=== PATIENT | female | born 1980 | race Caucasian/White ===

== ENCOUNTER 2024-01-11 01:46 | Inpatient (IN) ==
--- NOTE | 2024-01-11 02:11 | Emergency Department Note ---
History of Present Illness General Chief complaint: Flank Pain Stated complaint: "PAIN ALL OVER", RIB PAIN, BREATHING DIFFICULTY Time Seen by Provider: 01/11/24 01:55 Source: patient, RN notes reviewed and old records reviewed (Attempted but no old records available in the EMR) Mode of arrival: ambulatory Limitations: no limitations History of Present Illness Maximum Pain Intensity: 9 This patient is a 43-year-old female who comes in after having pain in her bilateral flanks and feeling just generally achy and flulike. She said Tuesday she left took coffee in the car for couple hours and had milk in it she drank it and on the way home had sharp pain in her stomach and felt uncomfortable. She currently she had heartburn. She later on the day she vomited and felt better she is continue have pain in her back bilaterally her urine was cloudy but she had no dysuria or hematuria. no fever. she has slight chest pain with breathing in the posterior chest bilaterally is on both sides. no fall or trauma. no cough she did take a COVID test that was negative. Denies . She is not breast-feeding. Home Medications Medication Instructions Recorded Confirmed Type epinephrine 0.3 mg/0.3 mL 0.3 mg IM DIRECTED PRN 01/11/24 01/11/24 History injection, auto-injector IDIOPATHIC ANGIOEDEMA prednisone 20 mg tablet 40 mg PO DAILY PRN IDIOPATHIC 01/11/24 01/11/24 History ANGIOEDEMA Allergies Allergy/AdvReac Type Severity Reaction Status Date / Time No Known Allergies Allergy Verified 01/11/24 02:12 Past Med/Surg History Problem List (Updated 01/11/24 @ 05:29 by Russell Paz MD) Common bile duct dilatation (Acute) Elevated liver function tests (Acute) Choledocholithiasis (Acute) UTI (urinary tract infection) (Acute) Bradycardia, sinus (Acute) Flank Pain (Acute) Left rib fracture (Acute) Pain of right thumb (Acute) Pneumothorax, left (Acute) Previous section (Chronic 04/12/11) Social History Smoking Status: Never smoker Preferred Language: Kosovan Feels Safe at Home: Yes Immunizations: Past medical historyshe did have a pneumothorax in the setting of trauma. No history of spontaneous pneumo. No history of blood clots Medications currently she takes no regular medication Review of Systems A total of 10 systems reviewed and were otherwise negative Physical Exam Vital Signs Vital Signs - 24 hr 01/11/24 01:50 01/11/24 02:35 01/11/24 02:41 Temperature 36.9 C Temperature Source Oral Pulse Rate 71 55 L Pulse Rate [Apical] Respiratory Rate 20 Respiratory Effort / Characteristics Non-Labored Spontaneous Respiratory Depth Normal Blood Pressure 116/83 Blood Pressure [Left Arm] Blood Pressure Mean 94 Blood Pressure Mean [Left Arm] Pulse Oximetry 98 Oxygen Delivery Method Room Air Room Air Sepsis Recent Fever Within 48 Hours No Sepsis New/Unexplained Change in Mental Status No Sepsis Action Taken by Nursing No Action Required 01/11/24 03:11 01/11/24 05:17 01/11/24 06:32 Temperature Temperature Source Pulse Rate 69 Pulse Rate [Apical] 52 L 74 Respiratory Rate 12 17 Respiratory Effort / Characteristics Respiratory Depth Blood Pressure Blood Pressure [Left Arm] 115/65 107/77 Blood Pressure Mean Blood Pressure Mean [Left Arm] 81 87 Pulse Oximetry 99 99 Oxygen Delivery Method Room Air Room Air Sepsis Recent Fever Within 48 Hours Sepsis New/Unexplained Change in Mental Status Sepsis Action Taken by Nursing General: Well developed well nourished middle-age female who appears in no acute distress, breathing comfortably on room air. Normal speech HEENT: Normal cephalic atraumatic. Pupils are equal round and reactive to light. Extraocular movements are intact. Oropharynx is pink with moist mucous membranes. No swelling of the mouth lips or tongue. Neck: Supple with a midline trachea. No meningeal signs or stiffness, no JVD or bruits. No Stridor. Chest: Clear to auscultation bilaterally. No wheezes or rhonchi. No increased work of breathing. No crepitus or subcutaneous air Heart: Regular rate and rhythm without murmurs or gallops. Abdomen: Soft nontender, nondistended without rebound guarding or rigidity. Extremities: No cyanosis clubbing or edema. No calf tenderness or assymetry Spine/Back. Non tender to palpation. No CVA tenderness. She has no significant tenderness on palpation no rash Skin: Good turgor without rashes. Neurologic exam: Cranial nerves two through 12 are intact. Motor and sensation are intact and symmetrical throughout. Course Administered Medications Sodium Chloride (Nss) 1,000 mls @ 125 mls/hr IV .Q8H GREG Stop: 08/16/24 05:29 Last Admin: 01/11/24 05:50 Dose: 125 mls/hr Documented By: NTAHALY Discontinued Medications Sodium Chloride (Nss) 1,000 mls @ 999 mls/hr IV .Q1H1M STA Stop: 01/11/24 03:05 Last Admin: 01/11/24 02:34 Dose: 999 mls/hr Documented By: MAYRA Piperacillin Sod/Tazobactam Sod (Zosyn) 4.5 gm in 100 mls @ 200 mls/hr IV NOW ONE Stop: 01/11/24 05:20 Last Infusion: 01/11/24 05:53 Dose: Infused Documented By: axle polisher: 01/11/24 05:12 Dose: 200 mls/hr Documented By: NATHALY Ioversol (Optiray 320 125ml) 125 ml IV ONCE ONE Stop: 01/11/24 04:29 Last Admin: 01/11/24 04:28 Dose: 117 ml Documented By: HODAN Ketorolac Tromethamine (Ketorolac Tromethamine 15 Mg/Ml Vial) 10 mg IV NOW ONE Stop: 01/11/24 02:58 Last Admin: 01/11/24 03:09 Dose: 10 mg Documented By: NATHALY Medical Decision Making Differential Diagnosis Viral illness, influenza, UTI, kidney stone, PE, pneumothorax, cardiac disease, infection, Medical Records Attestation: I reviewed the patient's medical records. Home Medications Current Medication List: was personally reviewed by me Laboratory Data Attestation: I reviewed the patient's lab results. 01/11/24 02:10 01/11/24 02:10 Lab Results 01/11/24 01/11/24 Range/Units 02:01 02:10 WBC 6.08 (4.8-10.8) K/ul RBC 4.21 (4.20-5.40) M/uL Hgb 12.6 (12.0-16.0) g/dl Hct 37.8 (37.0-47.0) % MCV 89.8 (80.0-100.0) fL MCH 29.9 (25.0-34.0) pg MCHC 33.3 (32.0-36.0) g/dL RDW Std Deviation 42.7 (36.4-46.3) fL RDW Coeff of Blanca 13.1 (11.5-14.5) % Plt Count 295 (130-400) K/uL MPV 9.7 (9.4-12.4) fL Immature Gran % (Auto) 0.3 % Neut % (Auto) 69.1 % Lymph % (Auto) 18.8 % White % (Auto) 7.2 % Eos % (Auto) 3.6 % Baso % (Auto) 1.0 % Neut # (Auto) 4.20 (1.40-6.50) K/uL Lymph # (Auto) 1.14 L (1.20-3.40) K/uL White # (Auto) 0.44 (0.11-0.59) K/uL Eos # (Auto) 0.22 (0.00-0.50) K/uL Baso # (Auto) 0.06 (0.00-0.20) K/uL Immature Gran # (Auto) 0.02 (0.01-0.20) K/uL D-Dimer 860 H* (0-500) ug/L FEU Sodium 137 (136-145) mmol/L Potassium 3.6 (3.5-5.1) mmol/L Chloride 105 (98-107) mmol/L Carbon Dioxide 27 (21-32) mmol/L Anion Gap 5 (3-11) BUN 11 (6-23) mg/dl Creatinine 0.85 (0.6-1.2) mg/dl Est Cr Clr Drug Dosing 79.0 ml/min Est GFR ( Amer) 96.6 ml/min Est GFR (Non-Af Amer) 83.3 ml/min BUN/Creatinine Ratio 12.9 (10-20) Glucose 110 H (70-99(Fasting)) mg/dl Calcium 8.8 (8.6-10.3) mg/dl Total Bilirubin 6.0 H (0.2-1.0) mg/dl AST 467 H (13-39) U/L ALT 1067 H (7-52) U/L Alkaline Phosphatase 215 H (34-104) U/L Troponin I High Sens 2.4 (0-14) pg/ml Total Protein 6.4 (6.0-8.3) gm/dl Albumin 4.1 (3.4-5.0) gm/dl Globulin 2.3 L (2.5-4.0) gm/dl Albumin/Globulin Ratio 1.8 (0.9-2) Lipase 27 (11-82) U/L HCG, Qual Negative (Negative) Urine Color Dark Yellow Urine Appearance Clear (Clear) Urine pH 7.0 (4.5-7.5) Ur Specific Ennice 1.021 (1.000-1.030) Urine Protein Negative (Negative) Urine Glucose (UA) Negative (Negative) Urine Ketones Trace H (Negative) Urine Blood Negative (Negative) Urine Nitrite Negative (Negative) Urine Bilirubin 2+ H (Negative) Urine Urobilinogen Negative (Negative) Ur Leukocyte Esterase Trace H (Negative) Urine WBC (Auto) 0-5 (0-5) /hpf Urine RBC (Auto) 3-5 H (0-2) /hpf U Hyaline Cast (Auto) 0-2 (0-2) /lpf U Epithel Cells (Auto) 6-10 H (0-2) /hpf Urine Bacteria (Auto) 1+ H (None Seen) Adenovirus (PCR) Not Detected (NotDetected) B. pertussis DNA (PCR) Not Detected (NotDetected) B.parapertussis DNA PCR Not Detected (NotDetected) C. pneumoniae DNA (PCR) Not Detected (NotDetected) Coronavirus OC43 (PCR) Not Detected (NotDetected) Coronavirus HKU1 (PCR) Not Detected (NotDetected) Coronavirus 229E (PCR) Not Detected (NotDetected) SARS-CoV-2 (PCR) Not Detected (NotDetected) Coronavirus NL63 (PCR) Not Detected (NotDetected) Monoscreen Negative (Negative) Human Metapneumovir PCR Not Detected (NotDetected) Influenza Type A (PCR) Not Detected (NotDetected) Influenza Type B (PCR) Not Detected (NotDetected) M. pneumoniae (PCR) Not Detected (NotDetected) Parainfluenza 1 (PCR) Not Detected (NotDetected) Parainfluenza 2 (PCR) Not Detected (NotDetected) Parainfluenza 3 (PCR) Not Detected (NotDetected) Parainfluenza 4 (PCR) Not Detected (NotDetected) RSV (PCR) Not Detected (NotDetected) Entero/Rhino (PCR) Not Detected (NotDetected) Imaging Data Attestation: I personally reviewed and interpreted this imaging study as follows: My Impression: Chest x-rayno acute infiltrate, failure, pneumothorax. No free air. CT angiography of the chestI do not see any definite PE Radiologist's Impression: Gallbladder Ultrasound 01/11/24 03:03 Exam(s): US GALLBLADDER EXAM: US Abdomen Limited, Gallbladder CLINICAL HISTORY: elevated bilirubin. TECHNIQUE: Real-time ultrasound of the right upper quadrant with image documentation. COMPARISON: No relevant prior studies available. FINDINGS: Liver: The liver is slightly heterogeneous and hyperechoic. The liver is enlarged measuring 19.1 cm in length. The portal vein is pain with flow directed towards the liver. Gallbladder: The gallbladder is hydropic in appearance and is fully distended. Echogenic sludge and subcentimeter gallstones noted. There is a nonmobile stone noted in the gallbladder neck measuring 2.7 mm. The gallbladder wall is within normal limits measuring 2.8 mm. No pericholecystic fluid. Evaluation for sonographic Jain sign is nondiagnostic secondary to patient's medication status. Common bile duct: The common bile duct is prominent measuring up to 7. 1 mm distally. No sonographically evident choledocholithiasis. Pancreas: Unremarkable as visualized. Right kidney: The right kidney is unremarkable without hydronephrosis or nephrolithiasis. Inferior vena cava: The IVC is unremarkable. Free fluid: No free fluid. Other findings: Visualized portions of the right wrist are unremarkable. IMPRESSION: 1. The gallbladder is hydropic in appearance. Layering sludge and subcentimeter gallstones are noted. However, there is a nonmobile gallstone noted in the neck of the gallbladder measuring 3 mm. No significant gallbladder wall thickening or pericholecystic fluid to suggest coexisting acute cholecystitis. 2. The common bile duct is prominent measuring up to 7.1 mm distally. This correlate with bilirubin levels. 3. Hepatomegaly with evidence of hepatic steatosis. No significant intrahepatic biliary dilatation. Electronically signed by: Chris Abdi MD 01/11/24 04:47 AM Abdomen/Pelvis CT 01/11/24 03:34 Exam(s): CT ABDOMEN + PELVIS With Contrast IV Amt: 117 ml optiray 320 EXAM: CT Abdomen and Pelvis With Intravenous Contrast CLINICAL HISTORY: elevated lfts. TECHNIQUE: Axial computed tomography images of the abdomen and pelvis with intravenous contrast. Automated exposure control was utilized for the study. A dose lowering technique was utilized adhering to the principles of ALARA. CONTRAST: Patient received 117 ml optiray 320 of IV contrast COMPARISON: Right upper quadrant ultrasound performed earlier FINDINGS: Lung bases: For findings regarding the lung bases, please see the CT report of the chest performed concurrently. No consolidation. Mediastinum: A small hiatal hernia is noted. ABDOMEN: Liver: Unremarkable. No mass. Gallbladder and bile ducts: There is a 3.6 mm choledocholithiasis in the distal common bile duct near the ampulla (series 600; image 30). No significant proximal biliary dilation. The gallbladder appears hydropic, as noted on the right upper quadrant ultrasound performed earlier. Layering mild hyperdense sludge and/or subcentimeter stones noted throughout the gallbladder. The stone noted in the gallbladder neck is not clearly evident by CT evaluation. No CT evidence for gallbladder wall thickening or biliary dilatation. Pancreas: The pancreas demonstrates normal enhancement without ductal dilation, peripancreatic inflammatory changes or loculated pseudocysts. Spleen: Unremarkable. No splenomegaly. Adrenals: Unremarkable. No mass. Kidneys and ureters: Unremarkable. No solid mass. No hydronephrosis. Stomach and bowel: Stomach is mildly distended with fluid and gas. No gastric mucosal thickening. No evidence for focal high-grade bowel obstruction. No asymmetric bowel mucosal abnormality, accounting for regions of colonic decompression. Mild stool burden. No definite diverticulitis. PELVIS: Appendix: The appendix is not clearly delineated. No secondary findings to suggest acute appendicitis. Bladder: Unremarkable. No mass. Reproductive: The retroverted uterus demonstrates no significant abnormality. A dominant follicle is noted in the right adnexa/ovary measuring 1.9 x 1.6 cm. ABDOMEN and PELVIS: Intraperitoneal space: Trace free fluid in the dependent pelvis. No loculation. No free air. Bones/joints: No acute fracture. No dislocation. Soft tissues: Unremarkable. Vasculature: Unremarkable. No abdominal aortic aneurysm. Lymph nodes: Unremarkable. No enlarged lymph nodes. IMPRESSION: 1. There is a 3.6 mm choledocholithiasis in the distal common bile duct near the ampulla (series 600; image 30). No significant proximal biliary dilation. Please correlate with bilirubin levels. 2. The gallbladder appears hydropic, as noted on the right upper quadrant ultrasound performed earlier. Layering mild hyperdense sludge and/or subcentimeter stones noted throughout the gallbladder. The stone noted in the gallbladder neck is not clearly evident by CT evaluation. No CT evidence for gallbladder wall thickening or biliary dilatation. 3. No evidence for focal high-grade bowel obstruction. No asymmetric bowel mucosal abnormality, accounting for regions of colonic decompression. Mild stool burden. No definite diverticulitis. No pneumoperitoneum. 4. Trace free fluid in the dependent pelvis. No loculation. The clinical significance of this finding is indeterminant and this may be incidental. Electronically signed by: Chris Abdi MD 01/11/24 05:02 AM Chest CTA 01/11/24 03:34 Exam(s): CTA CHEST IV Amt: 117 ml optiray 320 EXAM: CT Angiography Chest With Intravenous Contrast CLINICAL HISTORY: PE. TECHNIQUE: Axial computed tomographic angiography images of the chest with intravenous contrast. CTDI is 16.44 mGy and DLP is 555.4 mGy-cm. Automated exposure control was utilized for the study. A dose lowering technique was utilized adhering to the principles of ALARA. MIP reconstructed images were created and reviewed. COMPARISON: No relevant prior studies available. FINDINGS: Limitations: There is respiratory artifact, which degrades image quality on multiple image slices. Pulmonary arteries: County for limitations with respiratory artifact, there is no definite evidence for pulmonary embolism. Aorta: No acute findings. No thoracic aortic aneurysm. Lungs: No focal airspace consolidation identified with minimal dependent subsegmental changes noted posteriorly. Pleural space: Unremarkable. No significant effusion. No pneumothorax. Heart: Unremarkable. No cardiomegaly. No significant pericardial effusion. Bones/joints: No acute fracture. No dislocation. Soft tissues: Unremarkable. Lymph nodes: Unremarkable. No enlarged lymph nodes. IMPRESSION: 1. County for limitations with respiratory artifact, there is no definite evidence for pulmonary embolism. 2. No focal airspace consolidation identified with minimal dependent subsegmental changes noted posteriorly. No pleural effusion or pneumothorax. Electronically signed by: Chris Abdi MD 01/11/24 04:57 AM ECG Data Attestation: I personally reviewed and interpreted this ECG as follows: Indication: + chest pain Rate (beats per minute): 54 Rhythm: + sinus bradycardia ECG Intervals/blocks: + Normal QRS, + Normal QT and + Normal CO ECG Tasley: + Normal ECG ST segments: + Normal ST segments ECG Findings: no PACs or no PVCs Comparison ECG Date: no prior available MDM Narrative This patient comes in as described above. She was placed in room C12. She is here for treatment and evaluation of having flulike symptoms she has bilateral flank pain. She has slight pleurisy no fall or trauma no dysuria but her urine was cloudy she thinks. I access was established and she was hydrated IV normal saline. Chest x-ray was obtained and EKG multiple blood tests and urinalysis was obtained. She has no white count or fever here to suggest infection. She has no significant electrolyte or metabolic abnormalities. test was negative. Chest x-ray does not show congestive heart failure, pneumonia, pneumothorax. Troponin was negative. Her urinalysis does suggest infection. Her liver functions came back surprisingly elevated with a bilirubin of 6 and the elevation of the AST and ALT. She is not tender in the right upper abdomen on my exam. She did have a dose of Tylenol last night and this morning but has not taken more than 2 doses in the therapeutic regimen. She does not drink alcohol. Her gallbladder ultrasound does show sludge and stones with a stone at the outlet as well as a dilated common bile duct. Her liver functions are elevated likely related to gallstones and choledocholithiasis. I did give her Zosyn 4.5 g IV her urinalysis could also possibly be infected and that we will cover this as well. Her D-dimer was elevated in light of this I did a CT angiography of the chest there is no evidence of PE I did continue through the abdomen there are no other findings beyond what was seen on the ultrasound. I did discuss case with Ahmet Capone from surgery he does feel she needs to go to a place where they can do ERCP and at this point I do not have an ERCP provider at [facility]. She will need to be transferred. She has requested [facility]. I did talk to the [facility] hospitalist, Dr. Pereira, in [place] and he has accepted the patient. At this point they are awaiting a bed and then she will need ambulance transfer. The patient was kept n.p.o. here she was placed on normal saline at 125 cc an hour. She did freely consent both orally and in writing. I explained the risk and the benefits. The patient will be signed out at shift change to Dr. Raman with the plan to transfer to [facility]. 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 placed in EMR for continuous cardiac monitoring: Upon my evaluation patient was noted to be sinus bradycardia with a rate of 50 Impression & Plan Choledocholithiasis, Flank Pain, Bradycardia, sinus, UTI (urinary tract infection), Elevated liver function tests, Common bile duct dilatation Discharge Plan Visit Data Chief Complaint: Flank Pain Stated Complaint: "PAIN ALL OVER", RIB PAIN, BREATHING DIFFICULTY ED Provider: Russell Paz Discharge Problem: Choledocholithiasis, Flank Pain, Bradycardia, sinus, UTI (urinary tract infection), Elevated liver function tests, Common bile duct dilatation Forms Stand Alone Forms: [facility] Prescriptions Prescriptions: No Action epinephrine 0.3 mg/0.3 mL auto-injector 0.3 mg IM DIRECTED PRN (Reason: IDIOPATHIC ANGIOEDEMA) prednisone 20 mg tablet 40 mg PO DAILY PRN (Reason: IDIOPATHIC ANGIOEDEMA) Referrals Referrals: PCP,NO [Physician] - Discharge Problem: UTI (urinary tract infection) Qualifiers: Urinary tract infection type: site unspecified
[2024-01-11 02:27] LABS: Basophils # (auto) 0.06 K/uL (0.00-0.20); Eosinophils # (auto) 0.22 K/uL (0.00-0.50); Eosinophils % (auto) 3.6 %; Hematocrit (blood only) 37.8 % (37.0-47.0); Hemoglobin 12.6 g/dl (12.0-16.0); Immature Granulocytes # (auto) 0.02 K/uL (0.01-0.20); Immature Granulocytes % (auto) 0.3 %; Lymphocytes # (auto) 1.14 K/uL (1.20-3.40); Lymphocytes % (auto) 18.8 %; Mean Corpuscular Hemoglobin 29.9 pg (25.0-34.0); Mean Corpuscular Hgb Conc 33.3 g/dL (32.0-36.0); Mean Corpuscular Volume 89.8 fL (80.0-100.0); Mean Platelet Volume 9.7 fL (9.4-12.4); Monocytes # (auto) 0.44 K/uL (0.11-0.59); Monocytes % (auto) 7.2 %; Neutrophils % (auto) 69.1 %; Platelet Count 295 K/uL (130-400); RDW Coefficient of Variation 13.1 % (11.5-14.5); RDW Standard Deviation 42.7 fL (36.4-46.3); Red Blood Count 4.21 M/uL (4.20-5.40); White Blood Count 6.08 K/ul (4.8-10.8)
[2024-01-11 02:28] LABS: Appearance Urine Clear (Clear); Bacteria Urine Automated 1+ (None Seen); Bilirubin Urine 2+ (Negative); Blood Urine Negative (Negative); Cast Urine Automated 0-2 /lpf (0-2); Color Urine Dark Yellow; Glucose Urine UA Negative (Negative); Ketones Urine Trace (Negative); Leukocyte Esterase Urine Trace (Negative); Nitrite Urine Negative (Negative); Protein Urine Negative (Negative); Specific Gravity Urine 1.021 (1.000-1.030); Urobilinogen Urine Negative (Negative); WBC Urine Automated 0-5 /hpf (0-5)
[2024-01-11] MEDS: SODIUM CHLORIDE 0.9% 1,000 ML IV STA (02:34)
[2024-01-11 02:43] LABS: BUN Creatinine Ratio 12.9 (10-20); Calcium 8.8 mg/dl (8.6-10.3); Est GFR (African American) 96.6 ml/min; Est GFR (Non-African American) 83.3 ml/min; Potassium 3.6 mmol/L (3.5-5.1)
[2024-01-11 02:49] LABS: Troponin I High Sensitivity 2.4 pg/ml (0-14)
[2024-01-11 02:52] LABS: Pregnancy Test, Serum Negative (Negative)
[2024-01-11 02:57] LABS: Albumin Globulin Ratio 1.8 (0.9-2); Albumin Level 4.1 gm/dl (3.4-5.0); Globulin 2.3 gm/dl (2.5-4.0); Total Protein 6.4 gm/dl (6.0-8.3)
[2024-01-11] MEDS: KETOROLAC TROMETHAMINE 15 MG/ML VIAL IV ONE (03:09)
[2024-01-11 03:12] LABS: Adenovirus PCR Not Detected (NotDetected); Bordetella parapertussis PCR Not Detected (NotDetected); Bordetella pertussis PCR Not Detected (NotDetected); Chlamydia pneumoniae PCR Not Detected (NotDetected); Coronavirus 229E PCR Not Detected (NotDetected); Coronavirus CoV-2 (COVID19)PCR Not Detected (NotDetected); Coronavirus HKU1 PCR Not Detected (NotDetected); Coronavirus NL63 PCR Not Detected (NotDetected); Coronavirus OC43PCR Not Detected (NotDetected); Human Metapneumovirus PCR Not Detected (NotDetected); Influenza A PCR Not Detected (NotDetected); Influenza B PCR Not Detected (NotDetected); Mycoplasma pneumoniae PCR Not Detected (NotDetected); Parainfluenza Virus 1 PCR Not Detected (NotDetected); Parainfluenza Virus 2 PCR Not Detected (NotDetected); Parainfluenza Virus 3 PCR Not Detected (NotDetected); Parainfluenza Virus 4 PCR Not Detected (NotDetected); Respiratory Syncytial VirusPCR Not Detected (NotDetected); Rhinovirus/Enterovirus PCR Not Detected (NotDetected)
[2024-01-11 03:15] LABS: D Dimer 860 ug/L FEU (0-500)
[2024-01-11] MEDS: OPTIRAY 320 125ml IV ONE (04:28)
--- NOTE | 2024-01-11 04:48 | Ultrasound Report ---
Exam(s): US GALLBLADDER EXAM: US Abdomen Limited, Gallbladder CLINICAL HISTORY: elevated bilirubin. TECHNIQUE: Real-time ultrasound of the right upper quadrant with image documentation. COMPARISON: No relevant prior studies available. FINDINGS: Liver: The liver is slightly heterogeneous and hyperechoic. The liver is enlarged measuring 19.1 cm in length. The portal vein is pain with flow directed towards the liver. Gallbladder: The gallbladder is hydropic in appearance and is fully distended. Echogenic sludge and subcentimeter gallstones noted. There is a nonmobile stone noted in the gallbladder neck measuring 2.7 mm. The gallbladder wall is within normal limits measuring 2.8 mm. No pericholecystic fluid. Evaluation for sonographic Jain sign is nondiagnostic secondary to patient's medication status. Common bile duct: The common bile duct is prominent measuring up to 7. 1 mm distally. No sonographically evident choledocholithiasis. Pancreas: Unremarkable as visualized. Right kidney: The right kidney is unremarkable without hydronephrosis or nephrolithiasis. Inferior vena cava: The IVC is unremarkable. Free fluid: No free fluid. Other findings: Visualized portions of the right wrist are unremarkable. IMPRESSION: 1. The gallbladder is hydropic in appearance. Layering sludge and subcentimeter gallstones are noted. However, there is a nonmobile gallstone noted in the neck of the gallbladder measuring 3 mm. No significant gallbladder wall thickening or pericholecystic fluid to suggest coexisting acute cholecystitis. 2. The common bile duct is prominent measuring up to 7.1 mm distally. This correlate with bilirubin levels. 3. Hepatomegaly with evidence of hepatic steatosis. No significant intrahepatic biliary dilatation. Electronically signed by: Chris Abdi MD 01/11/24 04:47 AM
--- NOTE | 2024-01-11 04:58 | CT Scan Report ---
Exam(s): CTA CHEST IV Amt: 117 ml optiray 320 EXAM: CT Angiography Chest With Intravenous Contrast CLINICAL HISTORY: PE. TECHNIQUE: Axial computed tomographic angiography images of the chest with intravenous contrast. CTDI is 16.44 mGy and DLP is 555.4 mGy-cm. Automated exposure control was utilized for the study. A dose lowering technique was utilized adhering to the principles of ALARA. MIP reconstructed images were created and reviewed. COMPARISON: No relevant prior studies available. FINDINGS: Limitations: There is respiratory artifact, which degrades image quality on multiple image slices. Pulmonary arteries: County for limitations with respiratory artifact, there is no definite evidence for pulmonary embolism. Aorta: No acute findings. No thoracic aortic aneurysm. Lungs: No focal airspace consolidation identified with minimal dependent subsegmental changes noted posteriorly. Pleural space: Unremarkable. No significant effusion. No pneumothorax. Heart: Unremarkable. No cardiomegaly. No significant pericardial effusion. Bones/joints: No acute fracture. No dislocation. Soft tissues: Unremarkable. Lymph nodes: Unremarkable. No enlarged lymph nodes. IMPRESSION: 1. County for limitations with respiratory artifact, there is no definite evidence for pulmonary embolism. 2. No focal airspace consolidation identified with minimal dependent subsegmental changes noted posteriorly. No pleural effusion or pneumothorax. Electronically signed by: Chris Abdi MD 01/11/24 04:57 AM
--- NOTE | 2024-01-11 05:03 | CT Scan Report ---
Exam(s): CT ABDOMEN + PELVIS With Contrast IV Amt: 117 ml optiray 320 EXAM: CT Abdomen and Pelvis With Intravenous Contrast CLINICAL HISTORY: elevated lfts. TECHNIQUE: Axial computed tomography images of the abdomen and pelvis with intravenous contrast. Automated exposure control was utilized for the study. A dose lowering technique was utilized adhering to the principles of ALARA. CONTRAST: Patient received 117 ml optiray 320 of IV contrast COMPARISON: Right upper quadrant ultrasound performed earlier FINDINGS: Lung bases: For findings regarding the lung bases, please see the CT report of the chest performed concurrently. No consolidation. Mediastinum: A small hiatal hernia is noted. ABDOMEN: Liver: Unremarkable. No mass. Gallbladder and bile ducts: There is a 3.6 mm choledocholithiasis in the distal common bile duct near the ampulla (series 600; image 30). No significant proximal biliary dilation. The gallbladder appears hydropic, as noted on the right upper quadrant ultrasound performed earlier. Layering mild hyperdense sludge and/or subcentimeter stones noted throughout the gallbladder. The stone noted in the gallbladder neck is not clearly evident by CT evaluation. No CT evidence for gallbladder wall thickening or biliary dilatation. Pancreas: The pancreas demonstrates normal enhancement without ductal dilation, peripancreatic inflammatory changes or loculated pseudocysts. Spleen: Unremarkable. No splenomegaly. Adrenals: Unremarkable. No mass. Kidneys and ureters: Unremarkable. No solid mass. No hydronephrosis. Stomach and bowel: Stomach is mildly distended with fluid and gas. No gastric mucosal thickening. No evidence for focal high-grade bowel obstruction. No asymmetric bowel mucosal abnormality, accounting for regions of colonic decompression. Mild stool burden. No definite diverticulitis. PELVIS: Appendix: The appendix is not clearly delineated. No secondary findings to suggest acute appendicitis. Bladder: Unremarkable. No mass. Reproductive: The retroverted uterus demonstrates no significant abnormality. A dominant follicle is noted in the right adnexa/ovary measuring 1.9 x 1.6 cm. ABDOMEN and PELVIS: Intraperitoneal space: Trace free fluid in the dependent pelvis. No loculation. No free air. Bones/joints: No acute fracture. No dislocation. Soft tissues: Unremarkable. Vasculature: Unremarkable. No abdominal aortic aneurysm. Lymph nodes: Unremarkable. No enlarged lymph nodes. IMPRESSION: 1. There is a 3.6 mm choledocholithiasis in the distal common bile duct near the ampulla (series 600; image 30). No significant proximal biliary dilation. Please correlate with bilirubin levels. 2. The gallbladder appears hydropic, as noted on the right upper quadrant ultrasound performed earlier. Layering mild hyperdense sludge and/or subcentimeter stones noted throughout the gallbladder. The stone noted in the gallbladder neck is not clearly evident by CT evaluation. No CT evidence for gallbladder wall thickening or biliary dilatation. 3. No evidence for focal high-grade bowel obstruction. No asymmetric bowel mucosal abnormality, accounting for regions of colonic decompression. Mild stool burden. No definite diverticulitis. No pneumoperitoneum. 4. Trace free fluid in the dependent pelvis. No loculation. The clinical significance of this finding is indeterminant and this may be incidental. Electronically signed by: Chris Abdi MD 01/11/24 05:02 AM
[2024-01-11] MEDS: PIPERACILLIN/TAZOBACTAM 4.5 GM/100 ML BAG IV ONE (05:12)
[2024-01-11] MEDS: SODIUM CHLORIDE 0.9% 1,000 ML IV SCH (05:50)
--- NOTE | 2024-01-11 07:06 | XRay Report ---
SINGLE VIEW CHEST CLINICAL HISTORY: Atypical chest pain. FINDINGS: An AP, portable, upright chest radiograph is compared to study dated 11/08/2015. The cardiom ediastinal silhouette is unremarkable. The lungs and pleural spaces are clear. No pneumothorax is see n. The bony thorax is grossly intact. IMPRESSION: No active disease in the chest. ACT 112: Negative or not required by law. Electronically signed by: Suresh Christina M.D. 01/11/2024 7:05 AM
--- NOTE | 2024-01-11 08:48 | Emergency Department Note ---
ED Visit Note I received this patient at change of shift signout from Dr. Paz. Please see his note for initial history and physical exam. The patient is a 43-year-old female who presented to the emergency department for flank pain ultimately she was diagnosed with choledocholithiasis. The patient is set to be transferred to [facility] for ERCP and further disposition however at this time they do not have a specific bed assignment. The patient did receive IV antibiotics. For this reason I discussed her condition with the on-call [facility] hospitalist group. They have agreed to evaluate the patient in the emergency department for further medical management pending transfer. .
--- OUTSIDE RECORDS SUMMARY | 2024-01-11 08:50 | External Medical Summary | Summary of Care ---
Author Name Unknown Organization [facility] Address [address] [place] [address] Phone [phone] Care Team Providers Care Lug Breaker And Wire Puller Name Role Phone Jose Mariafern Brittanie Irwin DO Primary Care Provider Reason for Visit * Reason Onset Date Comments MyCode Nonconsent - Not interested at this time 09/27/2023 Encounter Details Date Type Department Care Team (Late st Contact Info) Description 09/27/2023 Orders Only Outcomes Research Department [address] [place], [place] [id number] Sarah Lockhart CHRA MyCode Nonconsent Documentation Allergies No known active allergiesdocumented as of this encounter (statuses as of 09/27/2023) Medications Medication Sig Dispensed Refills Start Date End Date Status BENADRYL ALLERGY 25 MG PO TABSIndications:Ang ioedema 2 TABLETS AT ONSET OF SWELLING, ITCHING, HIVES AND EVERY 4 TO 6 HOURS NEEDED 30 Tab 3 06/08/2011 Active Additional Information Patient not taking.Reported on 09/27/2023 EPINEPHrine 0.3 MG/0.3ML Injection Solution Auto-injector (Autoinjector)Indic ations:Angioedema, sequela For a severe reaction: Place orange end against the outer thigh, press firmly, hold in place for 10 seconds and go to the Emergency room. 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 documented as of this encounter (statuses as of 09/27/2023) Resolved Problems Problem Noted Date Diagnosed Date Resolved Date Angioedema 06/08/2011 06/01/2022 Angioneurotic edema 05/19/2011 06/08/20 11 documented as of this encounter (statuses as of 09/27/2023) Immunizations Name Administration Dates Next Due Seasonal Influenza, PF, 6 M & above, IM , (FluLaval or Fluzone) 03/07/2020,03/06/2019,03/10/2018, 0 17 Seasonal Influenza, Split, I IV3, With Preserve, Inj 03/07/2015,03/26/2014,03/23/2013 TDAP (age 10 and older)(Boostrix) 02/06/2013 documented as of this encounter Social History Tobacco Use Types Packs/Day Years Used Date Smoking Tobacco: Never Smokeless Tobacco: Never Comments:no passive smoke Alcohol Use Standard Drinks/Week Comments No 0 (1 standard drink = 0.6 oz pur e alcohol) PHQ-2 Answer Date Recorded PHQ Adult Total Score 0 08/13/2023 Hunger Vital Sign Answer Date Recorded Within the past 12 months, y ou worried that your food would run out before you got the money to buy more. Never true 08/13/19 24 Within the past 12 months, t he food you bought just didn't last and you didn't have money to get more. Never true 08/13/2023 Sex and Gender Information Value Date Recorded Sex Assigned at Female 05/15/2019 9:17 AM EST Gender Identity Female 05/15/2019 9:17 AM EST Sexual Orientation Straight 05/15/2019 9: 17 AM EST Job Start Date Occupation Industry Not on file Not on file Not on file documented as of this encounter Progress Notes * Sarah Lockhart CHRA - 09/27/2023 2:57 PM EDT Selina Nonconsent Documentation Edin Cote was approached in the clinic regarding participation in the [employer] and did not consent. documented in this encounter Plan of Treatment Health Maintenance Due Date Last Done Comments HIV Screening 10/27/1994 Hepatitis C Screening 10/27/1997 Hepatitis B (1 of 3 - 19+ 3-dose series) 10/27/1998 Pap Smear 10/27/2000 Cervical Cancer Screening 10/27/2009 HPV/Co-Test 10/27/2009 Mammogram 11/07/2020 11/08/2019 DTaP,Tdap,and Td Vaccines (2 - Td or Tdap) 02/06/2023 02/06/2013 COVID-19 Vaccine (1 - 2022-24 season) 2023 Influenza Vaccine (FLU shot) (Season Ended) 2024 03/07/2020, 03/06/2019, 03/10/2018, Additional history exists Depression Screening 08/13/2024 08/13/2023 Diabetes Screening 07/02/2025 07/02/2022, 1 08/17/2021, 01/19/2018 Lipid Panel 07/02/2027 07/02/2022, 06/16/2022 GARDASIL-HPV IMMUNIZATION SERIES Aged Out No longer eligible based on patient's age to complete this topic MENINGOCOCCAL (MENACTRA/MENVEO) Aged Out No longer eligible based on patient's age to complete this topic Pneumococcal Vaccine: Pediatrics (0 to 5 Years) and At-Risk Patients (6 to 64 Years) Aged Out No longer eligible based on patient's age to complete this topic documented as of this encounter Medical Devices Not on filedocumented as of this encounter Advance Directives Latest Code Status on File Code Status Date Activated Date Inactivated Comments Full Code 02/06/2013 6:02 PM 02/10/2013 6:37 PM This order reflects the patients wishes and were consensually agreed upon. Care Teams Lug Breaker And Wire Puller Relationship Specialty Start Date End Date Brittanie Crenshaw DO [address] [place] [address] PCP - General Family Medicine 04/06/21 documented as of this encounter
--- OUTSIDE RECORDS SUMMARY | 2024-01-11 08:50 | External Medical Summary | Summary of Care ---
Author Name Unknown Organization [facility] Address [address] [facility] [place] [address] Phone [phone] Care Team Providers Care Behavior Specialist Name Role Phone Brittanie Crenshaw DO Primary Care Provider Reason for Visit * Reason Comments Ear Problem Encounter Details Date Type Department Care Team (Late st Contact Info) Description 08/13/2023 2:00 PM EST Office Visit Family [facility] [address] [place] [address] Subhash Villa DO [address] [place] [address] Dysfunction of right eustachian tube*; Idiopathic soelp-dlvhu-yjbgmccvn Allergies No known active allergiesdocumented as of this encounter (statuses as of 08/13/2023) Medications Medication Sig Dispensed Refills Start Date End Date Status BENADRYL ALLERGY 25 MG PO TABSIndications: Angioedema 2 TABLETS AT ONSET OF SWELLING, ITCHING, HIVES AND EVERY 4 TO 6 HOURS NEEDED 30 Tab 3 06/08/2011 Active EPINEPHrine 0.3 MG/0.3ML Injection Solution Auto-injector (Autoinjector)In dications:Angioe kulwant, sequela For a severe reaction: Place orange end against the outer thigh, press firmly, hold in place for 10 seconds and go to the Emergency room. 2 Each 3 06/01/2022 Active Fluticasone Propionate 50 MCG/ACT Nasal Suspension (Flonase) Administer 2 Sprays into each nostril in the morning. 16 g 1 06/22/2022 Active Additional Information Patient not taking.Reported on 08/13/2023 Ciprofloxacin HCl 250 MG Oral Tablet (Cipro)Indicatio ns:Spitz nevus of lower leg, right Take 2 tablets as first dose, then one tablet this evening and one tablet twice daily for 7 more days. 15 Tablet 0 07/02/2022 Active Additional Information Patient not taking.Reported on 08/13/2023 predniSONE 20 MG Oral Tablet (Deltasone)Indic ations:Idiopathi c bwhqa-ezepc-fwyy caria Take 2 Tablets by mouth in the morning for 5 days. 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 documented as of this encounter (statuses as of 08/13/2023) Resolved Problems Problem Noted Date Diagnosed Date Resolved Date Angioedema 06/08/2011 06/01/2022 Angioneurotic edema 05/19/2011 06/08/20 11 documented as of this encounter (statuses as of 08/13/2023) Immunizations Name Administration Dates Next Due Seasonal [...] on file documented as of this encounter Last Filed Vital Signs Vital Sign Reading Time Taken Comments Blood Pressure 106/70 08/13/2023 1:50 PM EST Pulse 72 08/13/2023 1:50 PM EST Temperature 36.7 C (98 F) 08/13/2023 1:50 PM EST Respiratory Rate 16 08/13/2023 1:50 PM EST Oxygen Saturation - - Inhaled Oxygen Concentration - - Weight 73.9 kg (163 lb) 08/13/2023 1:50 PM EST Height 162.6 cm (5' 4") 08/13/2023 1:50 PM EST Body Mass Index 27.98 08/13/2023 1:50 PM EST documented in this encounter Progress Notes * Subhash Villa, - 08/13/2023 2:07 PM EST Images from the original note were not included. Assessment and Plan Dysfunction of right eustachian tube Educated and will treat with prednisone if needed - predniSONE 20 MG Oral Tablet (Deltasone); take 1 tablet by mouth each morning for 5 days for angioedema, may repeat daily as needed Idiopathic psvid-lcwuz-ycubarano - predniSONE 20 MG Oral Tablet (Deltasone); Take 2 Tablets by mouth in the morning for 5 days. History of Present Illness Edin Cote is a 42 year old female that presents for Ear Problem Presents with R ear pressure/pain Mild But no congestion or recent illnesses Physical Exam Vitals: 08/13/23 1350 Temp: 36.7 C (98 F) Pulse: 72 Resp: 16 BP: 106/70 BMI: 27.97 Physical Exam Constitutional: Appearance: Normal appearance. HENT: Head: Normocephalic and atraumatic. Right Ear: Tympanic membrane normal. Left Ear: Tympanic membrane normal. Nose: No congestion. Eyes: Extraocular Movements: Extraocular movements intact. Pupils: Pupils are equal, round, and reactive to light. Neurological: General: No focal deficit present. Mental Status: She is alert and oriented to person, place, and time. Psychiatric: Mood and Affect: Mood normal. Behavior: Behavior normal. Wrap-Up Time: Total time today was 26 minutes excluding any time spent in the performance of separately billed services. documented in this encounter Nursing Notes * Jenniffer Kitchen LPN - 08/13/2023 1:46 PM EST Chief Complaint Patient presents with Ear Problem Right ear pain. documented in this encounter Plan of Treatment Health Maintenance Due Date Last Done Comments HIV Screening 10/27/1994 Hepatitis C Screening 10/27/1997 Hepatitis B (1 of 3 - 19+ 3-dose series) 10/27/1998 Pap Smear 10/27/2000 Cervical Cancer Screening 10/27/2009 HPV/Co-Test 10/27/2009 Mammogram 11/07/2020 11/08/2019 DTaP,Tdap,and Td Vaccines (2 - Td or Tdap) 02/06/2023 02/06/2013 COVID-19 Vaccine (24 season) 2023 Influenza Vaccine (FLU shot) (#1) 2023 03/07/2020, 03/06/2019, 03/10/2018, Additional history exists Depression [...] Not on filedocumented as of this encounter Visit Diagnoses Diagnosis Dysfunction of right eustachian tube- Primary Dysfunction of Eustachian tube Idiopathic jrnkm-ehbsb-ocfkiofpd Idiopathic urticaria documented in this encounter Advance Directives Latest Code Status on File Code Status Date Activated Date Inactivated Comments Full Code 02/06/2013 6:02 PM 02/10/2013 6:37 PM This order reflects the patients wishes and were consensually agreed upon. Care Teams Behavior Specialist Relationship Specialty Start Date End Date Brittanie Crenshaw DO [address] [place] [address] PCP - General Family Medicine 04/06/21 documented as of this encounter
--- OUTSIDE RECORDS SUMMARY | 2024-01-11 08:50 | External Medical Summary | Summary of Care ---
Author Name Unknown Organization [facility] Address [address] [facility] [place] [address] Phone [phone] Care Team Providers Care Discharge Rn Name Role Phone Brittanie Crenshaw DO Primary Care Provider Reason for Visit * Reason Comments Lump Patient found a bump in groin area on 09/19/23. 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 documented as of this encounter (statuses as of 10/16/2023) Resolved Problems Problem Noted Date Diagnosed Date Resolved Date Angioedema 06/08/2011 06/01/2022 Angioneurotic edema 05/19/2011 06/08/20 11 documented as of this encounter (statuses as of 10/16/2023) Immunizations Name Administration Dates Next Due Seasonal [...] Sign Reading Time Taken Comments Blood Pressure 118/68 09/27/2023 2:00 PM EDT Pulse 88 09/27/2023 2:00 PM EDT Temperature 36.3 C (97.4 F) 09/27/2023 2:00 PM ED T Respiratory Rate - - Oxygen Saturation 96% 09/27/2023 2:00 PM EDT Inhaled Oxygen Concentration - - Weight 70.8 kg (156 lb 1.9 oz) 09/27/2023 2:00 P M EDT Height - - Body Mass Index 26.8 09/03/2023 10:58 AM EST documented in this encounter Progress Notes * Lena Montana MD - 10/16/2023 5:49 PM EDT Subjective Chief Complaint Patient presents with Lump Patient found a bump in groin area on 09/19/23. HPI: Edin Cote is a 42 year old female. Patient is unaccompanied. The following issues were addressed today: Patient presents today with c/o "lump" in her right groin area along her bikini line. Reached out to PCP with photo (see MyChart encounter) on 09/19/23. Since that time, the lump has resolved. Feels that it may have been from ingrown hair. A few weeks prior was on vacation and showers were outside so she was rushing to shave. She has had no other lesions or rashes. Review of Systems: See HPI Objective BP 118/68 | Pulse 88 | Temp 36.3 C (97.4 F) (Tympanic) | Wt 70.8 kg (156 lb 1.9 oz) | SpO2 96% | BMI 26.80 kg/m | BSA 1.79 m Wt Readings from Last 3 Encounters: 09/27/23 70.8 kg (156 lb 1.9 oz) 09/03/23 73.6 kg (162 lb 3.2 oz) 08/13/23 73.9 kg (163 lb) BP Readings from Last 3 Encounters: 09/27/23 118/68 09/03/23 116/62 08/13/23 106/70 General: Well-appearing, no acute distress Skin: Warm and dry, no lesions observed Psychiatric: Appropriate mood and affect Assessment & Plan 1. Ingrown hair Resolved. Discussed minimizing shaving. If recurs, can try warm compresses. Discussed s/s that would warrant evaluation in the office. Follow Up: Return if symptoms worsen or fail to improve. This note was electronically signed by Lena Montana MD I spent a total of 20-29 minutes (exact time 23 mins) on the date of service in preparation, delivery, and documentation of the care provided to Edin Cote excluding any time spent in the performance of separately billed services. documented in this encounter Nursing Notes * Evonne Boateng MED ASSIST - 09/27/2023 2:00 PM EDT Chief Complaint Patient presents with Lump Patient found a bump in groin area on 09/19/23. Patient has been verbally educated on the need or importance of Immunizations: Tdap and Hepatitis Band has declined topic(s). documented in this encounter Plan of Treatment Health Maintenance Due Date Last Done Comments HIV Screening 10/27/1994 Hepatitis C Screening 10/27/1997 Hepatitis B (1 of 3 - 19+ 3-dose series) 10/27/1998 Pap Smear 10/27/2000 Cervical Cancer Screening 10/27/2009 HPV/Co-Test 10/27/2009 Mammogram 11/07/2020 11/08/2019 DTaP,Tdap,and Td Vaccines (2 - Td or Tdap) 02/06/2023 02/06/2013 COVID-19 Vaccine ( - 2022- season) 2023 Influenza Vaccine (FLU shot) (Season [...] as of this encounter Visit Diagnoses Diagnosis Ingrown hair- Primary Other specified disease of hair and hair follicles documented in this encounter Advance Directives Latest Code Status on File Code Status Date Activated Date Inactivated Comments Full Code 02/06/2013 6:02 PM 02/10/2013 6:37 PM This order reflects the patients wishes and were consensually agreed upon. Care Teams Discharge Rn Relationship Specialty Start Date End Date Brittanie Crenshaw DO [address] [place] [address] PCP - General Family Medicine 04/06/21 documented as of this encounter
--- OUTSIDE RECORDS SUMMARY | 2024-01-11 08:50 | External Medical Summary | Summary of Care ---
Author Name Unknown Organization [facility] Address [address] [place] [address] Phone [phone] Care Team Providers Care Customer Service Representative Teller Name Role Phone Brittanie Crenshaw DO Primary Care Provider Reason for Visit * Reason Comments Ear Pain Pt here for complain ts of swimmers ear in both ears. Encounter Details Date Type Department Care Team (Latest Contact Info) Description 09/03/2023 10:30 AM EST [facility] Visit [facility] [address] [place] [address] Yesy Perez CRNP [address] [facility] [address] [place] [address] Acute otitis media, unspecified otitis media type*; Acute non-recurrent maxillary sinusitis Allergies No known active allergiesdocumented as of this encounter (statuses as of 09/03/2023) Medications Medication Sig Dispensed Refills Start Date End Date Status BENADRYL ALLERGY 25 MG PO TABSIndications:A ngioedema 2 TABLETS AT ONSET OF SWELLING, ITCHING, HIVES AND EVERY 4 TO 6 HOURS NEEDED 30 Tab 3 06/08/2011 Active EPINEPHrine 0.3 MG/0.3ML Injection Solution Auto-injector (Autoinjector)Ind ications:Angioede ma, sequela For a severe reaction: Place orange end against the outer thigh, press firmly, hold in place for 10 seconds and go to the Emergency room. 2 Each 3 06/01/2022 Active predniSONE 20 MG Oral Tablet (Deltasone)Indica tions:Dysfunction of right eustachian tube take 1 tablet by mouth each morning for 5 days for angioedema, may repeat daily as needed 30 Tablet 1 08/13/2023 Active Amoxicillin-Pot Clavulanate 875-125 MG Oral Tablet (Augmentin)Indica tions:Acute otitis media, unspecified otitis media type Take 1 Tablet by mouth in the morning and 1 Tablet before bedtime. Do all this for 10 days. 20 Tablet 0 09/03/2023 09/13/2023 Active Fluticasone Propionate 50 MCG/ACT Nasal Suspension (Flonase) Administer 2 Sprays into each nostril in the morning. 16 g 1 06/22/2022 09/03/2023 Discontinue d(Medicatio n List Clean Up) Ciprofloxacin HCl 250 MG Oral Tablet (Cipro)Indication s:Spitz nevus of lower leg, right Take 2 tablets as first dose, then one tablet this evening and one tablet twice daily for 7 more days. 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 documented as of this encounter (statuses as of 09/03/2023) Resolved Problems Problem Noted Date Diagnosed Date Resolved Date Angioedema 06/08/2011 06/01/2022 Angioneurotic edema 05/19/2011 06/08/20 11 documented as of this encounter (statuses as of 09/03/2023) Immunizations Name Administration Dates Next Due Seasonal Influenza, PF, 6 M & above, IM , (FluLaval or Fluzone) 03/07/2020,03/06/2019,03/10/2018, 0 17 Seasonal Influenza, Split, I IV3, With Preserve, Inj 03/07/2015,03/26/2014,03/23/2013 TDAP (age 10 and older)(Boostrix) 02/06/2013 documented as of this encounter Social History Tobacco Use Types Packs/Day Years Used Date Smoking Tobacco: Never Smokeless Tobacco: Never Tobacco Cessation:Counseling Given: Not Answered Comments:no passive smoke Alcohol Use Standard Drinks/Week [...] Sign Reading Time Taken Comments Blood Pressure 116/62 09/03/2023 10:58 AM EST Pulse 66 09/03/2023 10:58 AM EST Temperature 36.2 C (97.1 F) 09/03/2023 10:[address] Respiratory Rate 16 09/03/2023 10:58 AM EST Oxygen Saturation 99% 09/03/2023 10:58 AM EST Inhaled Oxygen Concentration - - Weight 73.6 kg (162 lb 3.2 oz) 09/03/2023 10:58 AM EST Height 162.6 cm (5' 4") 09/03/2023 10:58 AM EST Body Mass Index 27.84 09/03/2023 10:58 AM EST documented in this encounter Progress Notes * Yesy Perez CRNP - 09/03/2023 11:25 AM EST [facility] Basic Exam Edin Cote is a 42 year old year old female who presents for evaluation of : maxillary sinus pressure, was swimming on vacation, also pressure in both ears, no fever, eating and drinking with noproblem Associated Symptoms: Admits to: no other complaints Denies: no other complaints REVIEW OF SYSTEMS: See HPI for pertinent positives and negatives. Patient denies addtional complaints. PAST MEDICAL HISTORY: Past Medical History: Diagnosis Date Angioedema had 2nd , and again mid- with G3, unsure of etiology - possibly related; throat, lips, tongue, extremeties Past Surgical History: Procedure Laterality Date ABDOMEN SURGERY PROCEDURE NEC 2008 ? desmoid ? tumor removal BREAST BIOPSY Right benign age 23 BREAST BIOPSY Left 11/12/2019 PATH pending BREAST LUMP EDU. DELIVERY times 2 DELIVERY ONLY W/ 02/06/2013 DELIVERY AND CARE performed by Rosita Puri MD at [facility] PROCEDURE NEC LIGATE/CUT OVIDUCT(S) AT SURGERY 02/06/2013 LIGATION FALLOPIAN TUBE AT TIME OF DELIVERY ADD ON performed by Rosita Puri MD at [facility] Social History Tobacco Use Smoking status: Never Smokeless tobacco: Never Tobacco comments: no passive smoke Substance Use Topics Alcohol use: No Vaping/E-Cigarette Use Vaping/E-Cigarette Use Never User Vaping/E-Cigarette Substances Nicotine No Other No Flavoring No THC No Cannabidiol (CBD) No Vaping/E-Cigarette Devices Disposable No Pre-filled or Refillable Cartridge No Refillable Tank No Pre-filled Pod No Patient Active Problem List Diagnosis Code Other known or suspected abnormality, not elsewhere classified, affecting management of mother, antepartum condition or complication O35.8XX0 History of section complicating O34.219 Family history of congenital heart defect Z82.79 ADVANCE DIRECTIVE INFORMATION 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 2 Each 3 predniSONE 20 MG Oral Tablet (Deltasone) take 1 tablet by mouth each morning for 5 days for angioedema, may repeat daily as needed 30 Tablet 1 Amoxicillin-Pot Clavulanate 875-125 MG Oral Tablet (Augmentin) Take 1 Tablet by mouth in the morning and 1 Tablet before bedtime. Do all this for 10 days. 20 Tablet 0 BENADRYL ALLERGY 25 MG PO TABS 2 TABLETS AT ONSET OF SWELLING, ITCHING, HIVES AND EVERY 4 TO 6 HOURS NEEDED 30 Tab 3 No current facility-administered medications for this visit. Nursing Notes and Vital Signs reviewed. PHYSICAL EXAM: VITALS: BP 116/62 | Pulse 66 | Temp 36.2 C (97.1 F) | Resp 16 | Ht 1.626 m (5' 4") | Wt 73.6 kg(162 lb 3.2 oz) | SpO2 99% | BMI 27.84 kg/m | BSA 1.82 m GENERAL: alert, healthy, no distress, well nourished, and well developed HEAD: Normocephalic, No masses, lesions, tenderness or abnormalities EARS: External ears normal, Canals clear, bilateral TM absent due to erythema, no drainage, no odor NOSE: purulent rhinorrhea, mucosal edema, mucosal erythema, sinus tenderness OROPHARYNX: no exudate, no erythema, lips, buccal mucosa, and tongue normal, and mucous membranes are moist NECK: supple, small benign anterior cervical nodes bilaterally HEART: regular rate & rhythm LUNGS: chest symmetric with normal AP diameter, lungs clear to auscultation NEURO: alert & oriented x 3 with fluent speech, gait normal SKIN: skin color, texture, turgor are normal, no rashes or significant lesions Rest Increase fluids. Warm compresses x 10 min as needed. OK to take over the counter Tylenol or ibuprofen as needed. Assessment: Acute otitis media, unspecified otitis media type (Primary) - Amoxicillin-Pot Clavulanate 875-125 MG Oral Tablet (Augmentin); Take 1 Tablet by mouth in the morning and 1 Tablet before bedtime. Do all this for 10 days. Acute non-recurrent maxillary sinusitis FAVIAN Aldridge [address] [address] documented in this encounter Plan of Treatment [...] 2022-24 season) 2023 Influenza Vaccine (FLU shot) (#1) [...] as of this encounter Visit Diagnoses Diagnosis Acute otitis media, unspecified otitis media type- Primary Acute non-recurrent maxillary sinusitis documented in this encounter Advance Directives Latest Code Status on File Code Status Date Activated Date Inactivated Comments Full Code 02/06/2013 6:02 PM 02/10/2013 6:37 PM This order reflects the patients wishes and were consensually agreed upon. Care Teams Customer Service Representative Teller Relationship Specialty Start Date End Date Brittanie Crenshaw DO [address] [place] [address] PCP - General Family Medicine 04/06/21 documented as of this encounter
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
[2024-01-11] MEDS ORDERED: FAMOTIDINE 20MG IV PUSH 20 MG/5 ML SYR IV PRN (11:09)
[2024-01-11] MEDS ORDERED: ONDANSETRON INJ 2 MG/ML 2 ML VIAL IV PRN (11:09)
[2024-01-11] MEDS ORDERED: POLYETHYLENE (MIRALAX) 17 GM PACK PO PRN (11:09)
--- NOTE | 2024-01-11 11:28 | Electrocardiogram Report ---
Test Reason : Blood Pressure : / mmHG Vent. Rate : 054 BPM Atrial Rate : 054 BPM P-R Int : 132 ms QRS Dur : 092 ms QT Int : 450 ms P-R-T Axes : 046 061 037 degrees QTc Int : 426 ms Sinus bradycardia Otherwise normal ECG No previous ECGs available Confirmed by Geoff Jha ([id number]) on 01/11/2024 11:28:13 AM Referred By: REFERRED SELF Confirmed By:Geoff Jha
[2024-01-11] MEDS: PIPERACILLIN/TAZOBACTAM 4.5 GM in DEXTROSE 5% MINI-B 100 ML IV SCH (12:59)
[2024-01-11] MEDS: KETOROLAC TROMETHAMINE 15 MG/ML VIAL IV PRN (14:03)
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
--- NOTE | 2024-01-11 16:10 | Ultrasound Report ---
US venous doppler LE BI CLINICAL HISTORY: Elevated D dimer TECHNIQUE: Bilateral lower extremity real-time compression venous ultrasound with Color Doppler imagi ng. Utilizing real-time ultrasonic imaging multiple real time high-resolution ultrasonic images with compression and noncompression maneuvers of the deep venous system in addition to color doppler imagi ng were performed from the common femoral vein through the proximal calf veins. COMPARISON: None available at the time of this dictation. FINDINGS/IMPRESSION: Currently there is normal compressibility of the deep venous system from the common femoral vein thro ugh the proximal calf veins. No superficial venous thrombosis is identified. ACT 112: Negative or not required by law. Electronically signed by: Luther Uribe M.D. 01/11/2024 4:08 PM
[2024-01-11] MEDS: MoRPHine SULFATE 2 MG/ML CARP IV PRN (16:17)
[2024-01-11] MEDS ORDERED: ONDANSETRON INJ 2 MG/ML 2 ML VIAL ONE (21:24)
== END 2024-01-11 16:42 | disposition short-term general hospital (02) | DRG 446 ==
LOC: ED 01:46 → EDINP 09:49